=== PATIENT | female | born 1995 | race Caucasian/White ===

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

== ENCOUNTER 2017-02-23 12:16 | Emergency (ER) | payer OTHER ==
--- NOTE | ~2017-02-23 | CR142 ---
[facility] A Service of [facility] RADIOLOGY TEXT RESULTS PATIENT: MYNOR AKERS LOCATION: SED : [birth year] UNIT #: [id number] AGE: [address]: MEHRAN WATKINS SEX: F ORDER DR: [id number] [address] [address] [id number] E MR#: [id number] Acc #: [id number] NAME: MYNOR AKERS : 1995 SEX: F STUDY DATE/TIME: 02/23/2017 12:51 UNIT: SED ROOM: STUDY DESCRIPTION: CR Hand Min 3 Views Rt Attending Physician: Mehran Watkins Ordering Physician: Mehran Watkins Primary Care Physician: Blanca Arrington M.D. MEDICAL IMAGING REPORT This report is preliminary unless electronic signature is present. EXAM 3 views right hand DATE 02/23/2017 HISTORY Diffuse right hand pain since falling down stairs last night. COMPARISON None FINDINGS AP, lateral, and oblique projections of the hand show good mineralization with normal carpal, metacarpal, and phalangeal anatomy without indication of fracture, dislocation, or soft tissue radiopaque foreign body. IMPRESSION Normal hand. Dictated by... Aysha Deal M.D. THIS IS AN ELECTRONICALLY VERIFIED REPORT Aysha Deal M.D. at 02/24/2017 8:56 AM [facility]/to TD: 02/23/2017 16:33 JOB #: [id number] MEDICAL IMAGING REPORT [facility] A Service of [facility] RADIOLOGY TEXT RESULTS PATIENT: MYNOR AKERS LOCATION: SED : [birth year] UNIT #: [id number] AGE: [address]: MEHRAN WATKINS SEX: F ORDER DR: Page 1 of 1
== END 2017-02-23 13:44 | disposition home or self-care (01) ==
LOC: SED 12:16
DX: S00.03XA Contusion of scalp, initial encounter (principal); S60.221A Contusion of right hand, initial encounter; F17.200 Nicotine dependence, unspecified, uncomplicated; G40.909 Epilepsy, unspecified, not intractable, without status epilepticus; W01.10XA Fall on same level from slipping, tripping and stumbling with subsequent striking against unspecified object, initial encounter; Y92.009 Unspecified place in unspecified non-institutional (private) residence as the place of occurrence of the external cause
CPT/HCPCS: 29280; 73130; 99283